=== PATIENT | male | born 1960 | race Caucasian/White ===

== ENCOUNTER 2020-06-01 13:07 | Observation (INO) ==
[2020-06-01 13:33] LABS: Basophils # 0.1 10*3/uL (0.0-0.2); Basophils % 0.9 % (0.0-0.8); Eosinophils # 0.8 10*3/uL (0.0-0.87); Hematocrit 42.5 VOL% (42.0-52.0); Hemoglobin 14.2 GM/DL (14.0-18.0); Immature Granulocytes % 0.3 %; Immature Granulocytes Absolute 0.03 #; Lymphocytes # 2.4 10*3/uL (1.4-4.0); Lymphocytes % 24.7 % (21.2-54.2); Mean Corpuscular HGB Conc 33.4 GM/DL (32-36); Mean Corpuscular Volume 90.4 FL (87-102); Mean Platelet Volume 10.2 FL (9.6-12.0); Neutrophils % 57.1 % (38.7-73.9); Platelet Count 226 T/CUMM (130-400); Red Cell Distribution Width 13.5 % (9.3-17.3); White Blood Count 9.6 T/CUMM (4-12)
[2020-06-01] MEDS ORDERED: ASPIRIN 325 MG TABLET PO STA (13:43)
[2020-06-01 13:48] LABS: Albumin 3.7 G/DL (3.4-5.0); Bilirubin,Total 0.8 MG/DL (0.2-1.0); Calcium 9.1 MG/DL (8.5-10.1); Osmolality,Calculated 263.5 MOS/KG (273-304); Total Protein 7.3 G/DL (6.4-8.3)
[2020-06-01 14:10] LABS: PT Patient Result 10.9 SECS (9.8-11.9)
[2020-06-01] MEDS ORDERED: DEXTROSE 50% 25 GM/50 ML VIAL IV PRN (15:21)
[2020-06-01] MEDS ORDERED: MAGNESIUM SULF RIDER 4 GM in PREMIX 1 EACH IV PRN (15:21)
[2020-06-01] MEDS ORDERED: POTASSIUM CHLORIDE 20 MEQ TABLET PO PRN ×2 (15:21)
[2020-06-01] MEDS ORDERED: MAGNESIUM SULF RIDER 2 GM in PREMIX 1 EACH IV PRN (15:21)
[2020-06-01] MEDS ORDERED: ONDANSETRON 4 MG/2 ML VIAL IV PRN (15:21)
[2020-06-01] MEDS ORDERED: DOCUSATE SODIUM 100 MG CAPSULE PO PRN (15:21)
[2020-06-01] MEDS ORDERED: ACETAMINOPHEN 325 MG TABLET PO PRN (15:21)
[2020-06-01] MEDS ORDERED: SIMETHICONE CHEW 125 MG TABLET PO PRN (15:21)
[2020-06-01] MEDS ORDERED: ALUM/MAG/SIMETH/LIDO VISC 1:1 30 ML BOTTLE PO PRN (15:21)
[2020-06-01] MEDS ORDERED: hydrALAZINE 20 MG/1 ML VIAL IV PRN (15:21)
[2020-06-01] MEDS ORDERED: GLUCAGON 1 MG VIAL IM PRN (15:21)
[2020-06-01] MEDS ORDERED: ENOXAPARIN 150 MG/ML SYRINGE SUBCUT SCH (15:30)
[2020-06-01] MEDS ORDERED: ENOXAPARIN 30 MG/0.3 ML SYRINGE ONE (16:49)
[2020-06-01] MEDS ORDERED: ENOXAPARIN 100 MG/ML SYRINGE SUBCUT ONE (16:49)
[2020-06-01] MEDS: INSULIN LISPRO 100 UNIT/ML SUBCUT SCH ×2 (17:57→21:00)
[2020-06-01] MEDS: SODIUM CHLORIDE 0.45% 1,000 ML IV SCH (19:15)
[2020-06-02] MEDS: SODIUM CHLORIDE 0.45% 1,000 ML IV SCH (04:44)
[2020-06-02 05:35] LABS: Basophils # 0.1 10*3/uL (0.0-0.2); Basophils % 1.4 % (0.0-0.8); Eosinophils # 0.7 10*3/uL (0.0-0.87); Eosinophils % 10.3 % (0.00-10.9); Hematocrit 41.4 VOL% (42.0-52.0); Hemoglobin 13.7 GM/DL (14.0-18.0); Immature Granulocytes % 0.5 %; Immature Granulocytes Absolute 0.03 #; Lymphocytes # 1.9 10*3/uL (1.4-4.0); Mean Corpuscular HGB Conc 33.1 GM/DL (32-36); Mean Platelet Volume 10.5 FL (9.6-12.0); Monocytes % 9.8 % (1.7-12.7); Platelet Count 221 T/CUMM (130-400); Red Cell Distribution Width 13.7 % (9.3-17.3); White Blood Count 6.6 T/CUMM (4-12)
[2020-06-02 07:10] LABS: Albumin 3.3 G/DL (3.4-5.0); Bilirubin,Total 0.8 MG/DL (0.2-1.0); Calcium 9.2 MG/DL (8.5-10.1); Risk Ratio 4.64; Thyroid Stimulating Hormone 0.977 uIU/ml (0.358-3.74); VLDL CHOLESTEROL 84.4 MG/DL
[2020-06-02 08:25] VITALS: BP 128/72
[2020-06-02] MEDS ORDERED: ASPIRIN EC 81 MG TABLET PO SCH (09:00)
[2020-06-02] MEDS ORDERED: PANTOPRAZOLE 40 MG TABLET PO SCH (09:00)
[2020-06-02] MEDS: INSULIN LISPRO 100 UNIT/ML SUBCUT SCH (09:11)
[2020-06-02] MEDS ORDERED: OMEGA 3 ACID ETHYL ESTERS 1 GM CAPSULE PO SCH (10:30)
== END 2020-06-02 12:00 | disposition home or self-care (01) ==
LOC: N.ED 13:07 → N.EDINP 13:07 → N.TELES 17:16
PROVIDERS: ADMIT Internal Medicine; ATTEND Internal Medicine